=== PATIENT | female | born 1945 | race Caucasian/White ===

== ENCOUNTER 2017-08-25 06:23 | Observation (INO) | payer OTHER ==
[2017-08-25 06:55] LABS: BASO % 0.5 % (0.0-1.0); EOS # 0.2 10^3/uL (0.0-0.50); EOS % 3.3 % (0.0-3.0); HEMATOCRIT 35.9 % (36.0-47.0); IMMATURE GRANULOCYTE % 0.3 % (0-3.0); LYMPH # 1.4 10^3/uL (1.5-4.5); LYMPH % 24.8 % (24.0-44.0); MEAN CORPUSCULAR HGB CONC 33.4 g/dl (32.0-36.5); MEAN CORPUSCULAR VOLUME 89.8 fl (80.0-96.0); MONO # 0.6 10^3/uL (0.0-0.8); MONO % 9.7 % (0.0-5.0); NEUTROPHILS # 3.5 10^3/uL (1.8-7.7); NEUTROPHILS % 61.4 % (36.0-66.0); PLATELET COUNT, AUTOMATED 198 10^3/uL (150-450); RED CELL DISTRIBUTION WIDTH 12.7 % (11.5-14.5); WHITE BLOOD COUNT 5.8 10^3/uL (4.0-10.0)
[2017-08-25 07:15] LABS: ANION GAP 7 MEQ/L (8-16); BLOOD UREA NITROGEN 21 MG/DL (7-18); CARBON DIOXIDE LEVEL 30 MEQ/L (21-32); CHLORIDE LEVEL 108 MEQ/L (98-107); CK-MB VALUE MASS < 1.0 NG/ML (<3.6); CPK CREATINE PHOSPHOKINASE 24 U/L (26-192); CREATININE FOR GFR 0.54 MG/DL (0.55-1.30); GLOMERULAR FILTRATION RATE > 60.0 (>39); GLUCOSE, FASTING 155 MG/DL (70-100); MAGNESIUM LEVEL 1.6 MG/DL (1.8-2.4); MB/CK RELATIVE INDEX 4.16 (< OR =4); POTASSIUM SERUM 3.5 MEQ/L (3.5-5.1); SODIUM LEVEL 145 MEQ/L (136-145); TROPONIN I < 0.02 NG/ML (< 0.10)
[2017-08-25] MEDS: APIXABAN 5 MG TAB (ELIQUIS) PO ×2 (07:38→21:06)
[2017-08-25] MEDS: OMEPRAZOLE 20 MG CAP PO (07:38)
[2017-08-25] MEDS: DYAZIDE 37.5/25 CAP (TRIAM/HCTZ) PO (07:55)
[2017-08-25] MEDS: metFORMIN (GLUCOPHAGE) 500 MG TAB PO (09:23)
[2017-08-25 09:46] LABS: CK-MB VALUE MASS < 1.0 NG/ML (<3.6); CPK CREATINE PHOSPHOKINASE 28 U/L (26-192); MB/CK RELATIVE INDEX 3.57 (< OR =4); TROPONIN I 0.05 NG/ML (< 0.10)
[2017-08-25] MEDS: ASPIRIN 81 MG CHEW TABLET PO (10:13)
[2017-08-25] MEDS ORDERED: METOPROLOL SUCC (TopROL XL) 50MG **XL** TAB PO (10:30)
[2017-08-25] MEDS: METOPROLOL TART 50 MG TAB PO ×2 (10:43→21:05)
[2017-08-25] MEDS ORDERED: oxyBUTYnin *DITROPAN XL* 5 MG TABCR PO (12:15)
[2017-08-25] MEDS ORDERED: ONDANSETRON 4MG/2ML VIAL (J2405) IV (12:15)
[2017-08-25] MEDS ORDERED: ACETAMINOPHEN TAB 650MG DOSE (2X325MG) PO (12:15)
[2017-08-25 12:41] LABS: CPK CREATINE PHOSPHOKINASE 23 U/L (26-192); TROPONIN I 0.05 NG/ML (< 0.10)
[2017-08-25 12:42] LABS: CK-MB VALUE MASS < 1.0 NG/ML (<3.6); MB/CK RELATIVE INDEX 4.34 (< OR =4)
[2017-08-25] MEDS ORDERED: GLUCOSE 4 GM CHEW TABLET PO (12:45)
[2017-08-25] MEDS ORDERED: DEXTROSE 50% 50 ML SYRINGE IV (12:45)
[2017-08-25] MEDS ORDERED: GLUCAGON FOR INJ 1 MG VIAL (J1610) SC (12:45)
[2017-08-25] MEDS: MAGNESIUM OXIDE 400 MG TAB (MAG-OX) PO (13:05)
[2017-08-25] MEDS: HumaLOG INSULIN (NovoLOG) PER UNIT SC ×3 (13:06→20:28)
[2017-08-25 13:18] LABS: BEDSIDE GLUCOSE 125 MG/DL (83-110)
[2017-08-25 17:39] LABS: BEDSIDE GLUCOSE 134 MG/DL (83-110)
[2017-08-25 20:34] LABS: BEDSIDE GLUCOSE 148 MG/DL (83-110)
[2017-08-25 20:55] LABS: CK-MB VALUE MASS < 1.0 NG/ML (<3.6); CPK CREATINE PHOSPHOKINASE 55 U/L (26-192); MB/CK RELATIVE INDEX 1.81 (< OR =4); TROPONIN I 0.02 NG/ML (< 0.10)
[2017-08-25] MEDS: SIMVASTATIN 40 MG TAB PO (21:05)
[2017-08-26 04:28] LABS: HEMATOCRIT 34.7 % (36.0-47.0); HEMOGLOBIN 11.6 g/dl (12.0-15.5); MEAN CORPUSCULAR HEMOGLOBIN 29.9 pg (27.0-33.0); MEAN CORPUSCULAR HGB CONC 33.4 g/dl (32.0-36.5); MEAN CORPUSCULAR VOLUME 89.4 fl (80.0-96.0); PLATELET COUNT, AUTOMATED 205 10^3/uL (150-450); RED BLOOD COUNT 3.88 10^6/uL (4.00-5.40); WHITE BLOOD COUNT 6.7 10^3/uL (4.0-10.0)
[2017-08-26 04:57] LABS: ANION GAP 4 MEQ/L (8-16); BLOOD UREA NITROGEN 17 MG/DL (7-18); CARBON DIOXIDE LEVEL 32 MEQ/L (21-32); CHLORIDE LEVEL 108 MEQ/L (98-107); CK-MB VALUE MASS < 1.0 NG/ML (<3.6); CPK CREATINE PHOSPHOKINASE 38 U/L (26-192); CREATININE FOR GFR 0.57 MG/DL (0.55-1.30); GLOMERULAR FILTRATION RATE > 60.0 (>39); GLUCOSE, FASTING 106 MG/DL (70-100); MAGNESIUM LEVEL 1.9 MG/DL (1.8-2.4); MB/CK RELATIVE INDEX 2.63 (< OR =4); POTASSIUM SERUM 3.8 MEQ/L (3.5-5.1); SODIUM LEVEL 144 MEQ/L (136-145); TROPONIN I < 0.02 NG/ML (< 0.10)
[2017-08-26] MEDS: HumaLOG INSULIN (NovoLOG) PER UNIT SC ×2 (07:41→12:54)
[2017-08-26] MEDS: APIXABAN 5 MG TAB (ELIQUIS) PO (08:16)
[2017-08-26] MEDS: OMEPRAZOLE 20 MG CAP PO (08:17)
[2017-08-26] MEDS: DYAZIDE 37.5/25 CAP (TRIAM/HCTZ) PO (08:18)
[2017-08-26] MEDS: METOPROLOL TART 50 MG TAB PO (08:18)
[2017-08-26 11:37] LABS: THYROID STIMULATING HORMONE < 0.005 uIU/ML (0.358-3.740)
[2017-08-26 12:44] LABS: CPK CREATINE PHOSPHOKINASE 26 U/L (26-192); TROPONIN I < 0.02 NG/ML (< 0.10)
[2017-08-26 12:45] LABS: CK-MB VALUE MASS < 1.0 NG/ML (<3.6); MB/CK RELATIVE INDEX 3.84 (< OR =4)
== END 2017-08-26 14:15 | disposition home or self-care (01) ==
LOC: M ED 06:23 → M ED INP 12:43 → M PCU 16:13
DX: R07.9 Chest pain, unspecified (principal); I48.91 Unspecified atrial fibrillation; I10 Essential (primary) hypertension; E78.5 Hyperlipidemia, unspecified; Z79.01 Long term (current) use of anticoagulants; E05.90 Thyrotoxicosis, unspecified without thyrotoxic crisis or storm; K21.9 Gastro-esophageal reflux disease without esophagitis
CPT/HCPCS: 71046

== ENCOUNTER → 2017-09-09 | Outpatient (CLI) | payer OTHER ==
[2017-09-09 10:51] LABS: TOTAL 25(OH) VITAMIN D 70.9 NG/ML (30.0-100.0)
== END ==
LOC: M WUC 08:55
DX: R79.89 Other specified abnormal findings of blood chemistry (principal); E55.9 Vitamin D deficiency, unspecified; Z79.899 Other long term (current) drug therapy
CPT/HCPCS: 82306

== ENCOUNTER → 2017-09-19 | Outpatient (REF) | payer OTHER ==
[2017-09-19 16:30] LABS: FREE T4 1.25 NG/DL (0.76-1.46)
== END ==
LOC: M LABDRAW1 16:02
DX: E05.00 Thyrotoxicosis with diffuse goiter without thyrotoxic crisis or storm (principal)
CPT/HCPCS: 84439